=== PATIENT | male | born 1990 | race African-American/Black ===

== ENCOUNTER 2021-10-28 16:53 | Emergency (ER) | payer SELFPAY ==
[2021-10-28] MEDS ORDERED: Lidocaine 1% PF 5 ML VIAL ONE (18:27)
[2021-10-28] MEDS ORDERED: cefTRIAXone\\ROCEPHIN 500 MG VIAL ONE (18:27)
[2021-10-29 12:36] LABS: Chlam.trachomatis by PCR,Urine Not Detected (NotDetected)
== END 2021-10-28 19:06 | disposition home or self-care (01) ==
LOC: ERS 16:53
DX: R30.0 Dysuria (principal); F17.210 Nicotine dependence, cigarettes, uncomplicated
CPT/HCPCS: 87491; 87591; 96372; 99283; J0696